=== PATIENT | female | born 1970 | race African-American/Black ===

== ENCOUNTER 2024-11-29 16:56 | Emergency (ER) | payer MEDICAID, OTHER ==
[~2024-11-29] VITALS: Ht 142.2 cm; Wt 35.0 kg
[2024-11-29 17:12] VITALS: O2SAT 99
[2024-11-29] MEDS: KETOROLAC 15MG/ML VIAL IM ONE (17:59)
[2024-11-29 19:39] LABS: BASOPHILS % 0.6 % (0.0-2.0); EOSINOPHILS % 2.0 % (0.0-5.0); HEMATOCRIT. 35.9 % (36.0-48.0); HEMOGLOBIN. 11.4 g/dL (12.0-16.0); LYMPHOCYTES % 33.4 % (20.0-50.0); MEAN PLATELET VOLUME 7.5 fl (7.4-10.4); MONOCYTES % 11.4 % (2.0-8.0); NEUTROPHILS % 52.6 % (40.0-76.0); PLATELET 365 x1000/uL (130-400); RED BLOOD CELL COUNT 3.45 mill/uL (4.2-5.4); RED CELL DISTRIBUTION WIDTH 15.0 % (11.6-14.6)
[2024-11-29 19:47] LABS: INR 1.1
[2024-11-29 19:53] LABS: CREATININE 0.8 mg/dL (0.6-1.0); UREA NITROGEN BLOOD 7 mg/dL (9-23)
[2024-11-29] MEDS: MORPHINE SULFATE 4 MG/ML INJ (FOR IV/IM USE) IM ONE (20:08)
[2024-11-29] MEDS ORDERED: HYDR-4001 MT (20:39)
[2024-11-29 20:42] VITALS: BP 116/58; PULSE 82; RESP 18; TEMP 36.9; O2SAT 99
== END 2024-11-29 20:44 | disposition home or self-care (01) ==
LOC: ER 16:56 → CMPBEDREQ 11-30 07:22
DX: S72.401A Unspecified fracture of lower end of right femur, initial encounter for closed fracture (principal); J45.909 Unspecified asthma, uncomplicated; W07.XXXA Fall from chair, initial encounter; Y93.89 Activity, other specified; Y92.89 Other specified places as the place of occurrence of the external cause; Y99.8 Other external cause status
CPT/HCPCS: 80048; 85025; 85610; 85730; 86850; 86900; 86901; 36415; 73564; 29505; 96372; 99284; J1885; J2270; Z7610 ×3